=== PATIENT | female | born 1980 | race Caucasian/White ===

== ENCOUNTER → 2016-08-04 | Outpatient (REF) ==
[~2016-08-04] MED LIST: ATARAX 25MG25 MG/TAB PO; NORCO 325 MG-51 TAB PO; PREDNISONE20 MG PO; ZYRTEC 10MG10 MG PO
== END ==
LOC: WSOH 12:55
DX: Z01.84 Encounter for antibody response examination (principal)

== ENCOUNTER → 2016-08-30 | Outpatient (REF) | LOC: WSOH 13:55 | DX: Z11.1 Encounter for screening for respiratory tuberculosis (principal) ==